=== PATIENT | female | born 1990 | race Caucasian/White ===

== ENCOUNTER 2016-12-13 16:53 | Emergency (ER) | payer SELFPAY ==
[~2016-12-13] VITALS: Ht 162.6 cm; Wt 108.0 kg
[~2016-12-13 16:53] MED LIST: AMPH20TA2; AMYTRIPTILINE; ANTACID; CEPH-331 PO; CYMBALTA; HYDR-3754 PO; HYDR-3882 PO
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
[2016-12-13] MEDS ORDERED: LIDOCAINE/EPINEPHRINE 1% 1:100,000 (XYLOCAINE) 30 ML VIAL INJ ONE (19:15)
[2016-12-13] MEDS ORDERED: BACITRACIN OINTMENT 0.9 GM PACKET TOP ONE (19:25)
[2016-12-13] MEDS ORDERED: CEPHALEXIN 500 MG (KEFLEX) CAPSULE PO ONE (19:25)
[2016-12-13] MEDS ORDERED: SULFAMETHOXAZOLE/TRIMETHOPRIM 800-160 MG (SEPTRA DS) TAB PO ONE (19:25)
[2016-12-13] MEDS ORDERED: SULF1TAB35 PO (19:31)
[2016-12-13] MEDS ORDERED: HYDR-3702 PO (19:31)
[2016-12-13] MEDS ORDERED: CEPH-331 PO (19:31)
[2016-12-13] MEDS ORDERED: LIDOCAINE/EPINEPHRINE 1%-1:100,000 (XYLOCAINE) 20ML VIAL INJ ONE (19:55)
[2016-12-13 19:59] VITALS: BP 125/83
== END 2016-12-13 19:55 | disposition home or self-care (01) ==
LOC: ED 16:55
DX: L03.811 Cellulitis of head [any part, except face] (principal)
CPT/HCPCS: 10060; 99282